=== PATIENT | female | born 1970 | race Caucasian/White ===

== ENCOUNTER 2018-12-24 08:29 | Outpatient (CLI) | payer OTHER ==
[2018-12-24] MEDS ORDERED: CYCL5TAB PO (09:25)
[2018-12-24] MEDS ORDERED: TRAZ-137 PO (09:25)
== END 2018-12-24 23:59 | disposition home or self-care (01) ==
LOC: STAR 08:29
PROVIDERS: ATTEND Specialist
DX: Z02.9 Encounter for administrative examinations, unspecified (principal)

== ENCOUNTER 2019-01-02 12:20 | Day surgery (SDC) | payer OTHER ==
[2018-12-24 09:26] VITALS: BP 109/69
[~2019-01-02] VITALS: Ht 157.5 cm; Wt 61.8 kg
[~2019-01-02 12:20] MED LIST: CYCL5TAB PO; KETOROLAC 30 MG/1 ML ONE; TRAZ-137 PO
[2019-01-02] MEDS ORDERED: LACTATED RINGERS 1,000 ML IV SCH (12:53)
[2019-01-02] MEDS ORDERED: ACETAMINOPHEN 500 MG TABLET PO ONE (13:00)
[2019-01-02] MEDS ORDERED: SCOPOLAMINE PATCH, 1.5MG PATCH.TD72 TD ONE (13:00)
[2019-01-02] MEDS ORDERED: GABAPENTIN 300 MG CAPSULE PO ONE (13:00)
[2019-01-02] MEDS ORDERED: LIDOCAINE-MPF 1%, 2ML ONE (13:18)
[2019-01-02] MEDS ORDERED: LIDOCAINE-MPF 1%, 2ML INFIL ONE (13:30)
[2019-01-02 13:52] LABS: HCG UR SG 1.019 (1.003-1.030)
[2019-01-02] MEDS ORDERED: FENTANYL PF 250 MCG/5ML ONE (14:23)
[2019-01-02] MEDS ORDERED: MIDAZOLAM 1 MG/ML, 2ML ONE (14:23)
[2019-01-02] MEDS ORDERED: HALOPERIDOL 5 MG/ML IV PRN (14:30)
[2019-01-02] MEDS ORDERED: HYDROmorphone 2 MG/ML, 1ML IVPush PRN (14:30)
[2019-01-02] MEDS ORDERED: OXYcodone 5 MG/5 ML ORAL.SOL UDC PO PRN (14:30)
[2019-01-02] MEDS ORDERED: FENTANYL PF 100 MCG/2ML IV PRN (14:30)
[2019-01-02] MEDS ORDERED: hydrALAzine 20 MG/ML, 1ML IV PRN (14:30)
[2019-01-02] MEDS ORDERED: LABETALOL 5MG/ML, 20ML IV PRN (14:30)
[2019-01-02] MEDS ORDERED: PROMETHAZINE 25 MG/ML, 1ML IV PRN (14:30)
[2019-01-02] MEDS ORDERED: METOPROLOL 1 MG/ML, 5ML IV PRN (14:30)
[2019-01-02] MEDS ORDERED: MEPERIDINE/PF 25MG/0.5ML IVPush PRN (14:30)
[2019-01-02] MEDS ORDERED: DIPHENHYDRAMINE 50 MG/ML, 1ML IVPush PRN (14:30)
[2019-01-02] MEDS ORDERED: PROCHLORPERAZINE 5 MG/ML, 2ML IV PRN (14:30)
[2019-01-02] MEDS ORDERED: BUPIVACAINE/PF 0.25% ONE (14:49)
[2019-01-02] MEDS ORDERED: EPINEPHRINE 1 MG/ML, 1ML ONE (14:49)
[2019-01-02] MEDS ORDERED: FLUORESCEIN SODIUM 500 MG/5 ML ONE (14:49)
[2019-01-02] MEDS ORDERED: NEOSTIGMINE 1 MG/ML, 10ML ONE (16:41)
[2019-01-02] MEDS ORDERED: PROPOFOL 10 MG/ML, 20ML ONE (16:41)
[2019-01-02] MEDS ORDERED: ONDANSETRON 2MG/ML, 2ML ONE (16:41)
[2019-01-02] MEDS ORDERED: ROCURONIUM 10MG/ML,5ML ONE (16:41)
[2019-01-02] MEDS ORDERED: GLYCOPYRROLATE 0.2MG/1ML, 5ML ONE (16:41)
[2019-01-02] MEDS ORDERED: CEFAZOLIN 1,000 MG ONE (16:41)
[2019-01-02] MEDS ORDERED: SUCCINYLCHOLINE 20 MG/ML, 10ML ONE (16:41)
[2019-01-02] MEDS ORDERED: DEXAMETHASONE 4 MG/ML, 1ML ONE (16:41)
[2019-01-02] MEDS ORDERED: OXYcodone 5 MG/5 ML ORAL.SOL UDC ONE (17:05)
[2019-01-02] MEDS ORDERED: HYDROmorphone 2 MG/ML, 1ML ONE (17:05)
[2019-01-02] MEDS ORDERED: FENTANYL PF 100 MCG/2ML ONE (17:05)
[2019-01-02] MEDS ORDERED: HYDROmorphone 2 MG/ML, 1ML IV PRN (19:00)
[2019-01-02] MEDS ORDERED: HYDROcodone/APAP 7.5-325MG/15ML UDC PO PRN (19:00)
[2019-01-02] MEDS ORDERED: MEPERIDINE/PF 100 MG/ML IM PRN (19:00)
[2019-01-02] MEDS ORDERED: ONDANSETRON 2MG/ML, 2ML IV PRN (19:00)
[2019-01-02 20:24] VITALS: BP 103/53
[2019-01-02] MEDS: KETOROLAC 30 MG/1 ML IV SCH (20:44)
[2019-01-02] MEDS: D5%-LACTATED RINGERS 1,000 ML IV SCH (20:44)
[2019-01-02] MEDS ORDERED: TRAZODONE 100MG TABLET PO SCH (21:00)
[2019-01-02] MEDS: CEFAZOLIN PMX 2GM/50ML 50 ML IVPB SCH (23:48)
[2019-01-02 23:53] VITALS: BP 96/46
[2019-01-03] MEDS: KETOROLAC 30 MG/1 ML IV SCH ×2 (03:12→07:49)
[2019-01-03 03:39] VITALS: BP 96/52
[2019-01-03] MEDS: D5%-LACTATED RINGERS 1,000 ML IV SCH (05:03)
[2019-01-03 06:52] VITALS: BP 99/60
[2019-01-03] MEDS: CEFAZOLIN PMX 2GM/50ML 50 ML IVPB SCH (07:49)
[2019-01-03] MEDS ORDERED: HYDR-3240 PO (10:27)
[2019-01-03] MEDS ORDERED: IBUP1TAB5 PO (10:28)
== END 2019-01-03 11:00 | disposition home or self-care (01) ==
LOC: OUT 12:20 → 4NOR 17:58 → OUT 18:08 → UNDOADMIN 18:09 → 4NOR 18:09 → DCLOUNGE 01-03 10:55 → OUT 01-03 11:00 → UNDODISIN 01-03 11:00
PROVIDERS: ATTEND Specialist
DX: N72 Inflammatory disease of cervix uteri (principal); N83.8 Other noninflammatory disorders of ovary, fallopian tube and broad ligament; F41.9 Anxiety disorder, unspecified; F43.10 Post-traumatic stress disorder, unspecified; G43.909 Migraine, unspecified, not intractable, without status migrainosus; F17.290 Nicotine dependence, other tobacco product, uncomplicated; Z79.899 Other long term (current) drug therapy; Z88.8 Allergy status to other drugs, medicaments and biological substances; Z83.3 Family history of diabetes mellitus; Z82.49 Family history of ischemic heart disease and other diseases of the circulatory system
CPT/HCPCS: 36415; 58262; 81025; 85014; 85018; 88307; 88342; J0171; J0330; J0690; J1100; J1170; J1885; J2250; J2405; J2704; J2710; J3010; J3490; J7120; J7121; G0378

== ENCOUNTER 2019-01-11 18:50 | Inpatient (IN) | payer OTHER ==
[~2019-01-11] VITALS: Ht 157.5 cm; Wt 69.5 kg
[~2019-01-11 18:50] MED LIST changes: +HYDR-3240 PO; +IBUP1TAB5 PO; -KETOROLAC 30 MG/1 ML ONE
[2019-01-11] MEDS ORDERED: SODIUM CHLORIDE FLUSH 10ML SYR IVF ONE (20:00)
[2019-01-11 20:02] LABS: BASOPHILS # (AUTO) 0.04 x10^3/uL (0-0.1); BASOPHILS % (AUTO) 0 % (0-1); EOSINOPHILS # (AUTO) 0.18 x10^3/uL (0-0.4); EOSINOPHILS % (AUTO) 1 % (1-7); LYMPHOCYTES % (AUTO) 10 % (22-44); MD NO; MEAN CORPUSCULAR HEMOGLOBIN 31.8 pg (27.0-34.8); MEAN CORPUSCULAR HGB CONC 33.6 g/dL (32.4-35.8); MEAN CORPUSCULAR VOLUME 94.9 fL (80-100); MEAN PLATELET VOLUME 7.9 fL (7.4-10.4); MONOCYTES # (AUTO) 0.95 x10^3/uL (0.2-0.8); MONOCYTES % (AUTO) 6 % (2-9); NEUTROPHILS # (AUTO) 13.43 x10^3/uL (1.8-6.8); NEUTROPHILS % (AUTO) 82 % (42-75); PLATELET COUNT 364 x10^3/uL (130-400); RED BLOOD COUNT 3.33 x10^6/uL (3.82-5.3); RED CELL DISTRIBUTION WIDTH 13.5 % (9.6-15.2)
[2019-01-11 20:12] LABS: ALANINE AMINOTRANSFERASE 22 U/L (12-78); ALBUMIN 3.4 g/dL (3.4-5.0); ANION GAP 8 mmol/L (5-15); CALCIUM 8.5 mg/dL (8.5-10.1); CHLORIDE 110 mmol/L (98-107); CREATININE 0.58 mg/dL (0.55-1.02)
[2019-01-11 20:15] LABS: ALKALINE PHOSPHATASE 117 U/L (45-117); BILIRUBIN,TOTAL 0.5 mg/dL (0.2-1.0); TOTAL PROTEIN 7.3 g/dL (6.4-8.2)
--- NOTE | 2019-01-11 20:23 | NUR ---
PT C/O VAGINAL BLEEDING SINCE HYSTERCTOMY ONE WEEK AGO AND FOUL ODOR NOTICED SINCE YESTERDAY ACCOMPANIED BY FEVERS AND CHILLS. WAITING FOR LAB RESULTS. UA SENT TO LAB.
--- NOTE | 2019-01-11 20:40 | NUR ---
PT IN US.
[2019-01-11] MEDS ORDERED: OMNIPAQUE 350 MG/ML, 100ML BOTTLE ONE (21:00)
--- NOTE | 2019-01-11 21:20 | NUR ---
3 P'S ADDRESSED. PT REQUESTING PAIN MEDS. PROVIDER AWARE.
[2019-01-11] MEDS ORDERED: HYDROmorphone 2 MG/ML, 1ML ONE (21:23)
[2019-01-11] MEDS ORDERED: ONDANSETRON 2MG/ML, 2ML ONE (21:23)
[2019-01-11] MEDS ORDERED: PIPERACILLIN/TAZO/PMX 3.375GM 50 ML ONE (21:23)
[2019-01-11] MEDS ORDERED: VANCOMYCIN PER PHARMACY MC PRN ×2 (21:30→22:00)
[2019-01-11] MEDS ORDERED: HYDROmorphone 2 MG/ML, 1ML IVPush PRN (21:30)
[2019-01-11] MEDS ORDERED: VANCOMYCIN 1,200 MG in SODIUM CHLORIDE 0.9% 250 ML IV ONE (21:30)
[2019-01-11] MEDS ORDERED: ONDANSETRON 2MG/ML, 2ML IVPush ONE (21:30)
[2019-01-11] MEDS ORDERED: PIPERACILLIN/TAZO/PMX 3.375GM 50 ML IV ONE (21:30)
[2019-01-11] MEDS: SODIUM CHLORIDE 0.9% 1,000 ML IV SCH (21:34)
[2019-01-11 21:38] LABS: CULTURE INDICATED? YES; MICROSCOPIC INDICATED
[2019-01-11] MEDS ORDERED: ZOSYN PER PHARMACY MC PRN (22:00)
--- NOTE | 2019-01-11 22:09 | NUR ---
REPORT TO NERY ROTH ON MEDICAL. VANCO TO BE STARTED BY IZABELA ROTH PRIOR TO TRANSPORT.
--- NOTE | 2019-01-11 22:15 | NUR ---
PT TO GO TO IR THEN FLOOR PER KOSTA IN RADIOLOGY. NIHARIKAO STOPPED FOR USING IV FOR SEDATION PURPOSES. NERY ON FLOOR AWARE AND WILL START VANCO WHEN PT GETS TO THE FLOOR.
[2019-01-11] MEDS ORDERED: FLUMAZENIL 0.1 MG/1 ML, 5ML ONE (22:50)
[2019-01-11] MEDS ORDERED: FENTANYL PF 100 MCG/2ML ONE (22:50)
[2019-01-11] MEDS ORDERED: MIDAZOLAM 1 MG/ML, 5ML ONE (22:50)
[2019-01-11] MEDS ORDERED: NALOXONE 1 MG/ML, 2ML ONE (22:50)
[2019-01-11] MEDS ORDERED: LIDOCAINE 1%, 20ML ONE (22:52)
--- NOTE | 2019-01-11 22:57 | NUR ---
NEGRO FROM CT TRANSPORTING PT TO IR VIA GURNEY. PT TO BE TAKEN TO ROOM 376 AFTER PROCEDURE. PT VERBALIZES UNDERSTANDING. PT BELONGINGS PLACED IN BELONGINGS BAG AND TRANSPORTED WITH PT. REPORT OF PT GIVEN TO FLOOR NURSE BY CANDY Rios
[2019-01-11] MEDS ORDERED: PHARMACOKINETIC MONITORING MC PRN (23:45)
[2019-01-12] VITALS: BP 116/72
[2019-01-12 00:28] VITALS: BP 103/59
[2019-01-12] MEDS ORDERED: TRAZODONE 50MG TABLET PO ONE (03:30)
[2019-01-12] MEDS: PIPERACILLIN/TAZO/PMX 3.375GM 50 ML IV SCH ×4 (04:12→21:40)
[2019-01-12 05:59] LABS: BASOPHILS # (AUTO) 0.01 x10^3/uL (0-0.1); BASOPHILS % (AUTO) 0 % (0-1); EOSINOPHILS # (AUTO) 0.15 x10^3/uL (0-0.4); EOSINOPHILS % (AUTO) 1 % (1-7); LYMPHOCYTES # (AUTO) 1.73 x10^3/uL (1-3.4); LYMPHOCYTES % (AUTO) 14 % (22-44); MD NO; MEAN CORPUSCULAR HEMOGLOBIN 30.8 pg (27.0-34.8); MEAN CORPUSCULAR HGB CONC 32.7 g/dL (32.4-35.8); MEAN CORPUSCULAR VOLUME 93.9 fL (80-100); MEAN PLATELET VOLUME 7.7 fL (7.4-10.4); MONOCYTES # (AUTO) 0.75 x10^3/uL (0.2-0.8); MONOCYTES % (AUTO) 6 % (2-9); NEUTROPHILS % (AUTO) 79 % (42-75); PLATELET COUNT 312 x10^3/uL (130-400); RED BLOOD COUNT 3.08 x10^6/uL (3.82-5.3); RED CELL DISTRIBUTION WIDTH 13.3 % (9.6-15.2)
[2019-01-12 06:03] LABS: ANION GAP 8 mmol/L (5-15); CALCIUM 8.4 mg/dL (8.5-10.1); CHLORIDE 109 mmol/L (98-107); CREATININE 0.56 mg/dL (0.55-1.02)
[2019-01-12] MEDS: morphine SULFATE 10 MG/ML, 1ML IVPush PRN ×4 (09:35→20:37)
[2019-01-12 09:38] VITALS: BP 118/67
[2019-01-12] MEDS: SODIUM CHLORIDE 0.9% 1,000 ML IV SCH (10:08)
[2019-01-12] MEDS: VANCOMYCIN 1,200 MG in SODIUM CHLORIDE 0.9% 250 ML IV SCH (13:07)
[2019-01-12 13:13] LABS: % IRON SATURATION 7 % (20-55); IRON LEVEL 15 mcg/dL (50-170); TOTAL IRON BINDING CAPACITY 219 mcg/dL (250-450)
[2019-01-12 14:41] VITALS: BP 114/65
[2019-01-12] MEDS: FERROUS SULFATE 325 MG TABLET PO SCH (17:45)
[2019-01-12] MEDS: HYDROcodone/APAP 5/325 TABLET PO PRN (17:45)
[2019-01-12] MEDS: TRAZODONE 100MG TABLET PO SCH (20:21)
[2019-01-12] MEDS: DOCUSATE 100 MG CAPSULE PO PRN (20:37)
[2019-01-12 20:46] VITALS: BP 98/66
[2019-01-13 00:12] VITALS: BP 102/64
[2019-01-13] MEDS: morphine SULFATE 10 MG/ML, 1ML IVPush PRN ×4 (00:21→09:53)
[2019-01-13] MEDS: VANCOMYCIN 1,200 MG in SODIUM CHLORIDE 0.9% 250 ML IV SCH ×2 (00:21→12:42)
[2019-01-13] MEDS: SODIUM CHLORIDE 0.9% 1,000 ML IV SCH ×3 (02:25→21:48)
[2019-01-13] MEDS: PIPERACILLIN/TAZO/PMX 3.375GM 50 ML IV SCH ×4 (03:21→21:48)
[2019-01-13 04:28] LABS: BASOPHILS # (AUTO) 0.03 x10^3/uL (0-0.1); BASOPHILS % (AUTO) 0 % (0-1); EOSINOPHILS # (AUTO) 0.15 x10^3/uL (0-0.4); EOSINOPHILS % (AUTO) 1 % (1-7); LYMPHOCYTES # (AUTO) 2.02 x10^3/uL (1-3.4); LYMPHOCYTES % (AUTO) 18 % (22-44); MD NO; MEAN CORPUSCULAR HEMOGLOBIN 30.6 pg (27.0-34.8); MEAN CORPUSCULAR HGB CONC 32.6 g/dL (32.4-35.8); MEAN CORPUSCULAR VOLUME 94.1 fL (80-100); MEAN PLATELET VOLUME 7.6 fL (7.4-10.4); MONOCYTES # (AUTO) 0.68 x10^3/uL (0.2-0.8); MONOCYTES % (AUTO) 6 % (2-9); NEUTROPHILS # (AUTO) 8.39 x10^3/uL (1.8-6.8); NEUTROPHILS % (AUTO) 75 % (42-75); PLATELET COUNT 315 x10^3/uL (130-400); RED BLOOD COUNT 2.94 x10^6/uL (3.82-5.3); RED CELL DISTRIBUTION WIDTH 12.7 % (9.6-15.2)
[2019-01-13 04:40] LABS: ANION GAP 6 mmol/L (5-15); CALCIUM 8.2 mg/dL (8.5-10.1); CHLORIDE 112 mmol/L (98-107); CREATININE 0.57 mg/dL (0.55-1.02)
[2019-01-13 04:53] VITALS: BP 97/57
[2019-01-13] MEDS: FERROUS SULFATE 325 MG TABLET PO SCH ×2 (08:00→15:43)
[2019-01-13 08:19] VITALS: BP 103/67
[2019-01-13] MEDS ORDERED: SODIUM CHLORIDE 0.9% 1,000 ML IV SCH (08:30)
[2019-01-13] MEDS: HYDROcodone/APAP 5/325 TABLET PO PRN ×3 (12:42→22:56)
[2019-01-13] MEDS: DOCUSATE 100 MG CAPSULE PO PRN (12:42)
[2019-01-13 13:21] VITALS: BP 102/68
[2019-01-13] MEDS: MAGNESIUM HYDROXIDE 8%, 30ML UDC PO PRN (15:53)
[2019-01-13 20:54] VITALS: BP 93/63
[2019-01-13] MEDS: TRAZODONE 100MG TABLET PO SCH (21:48)
[2019-01-14] MEDS: VANCOMYCIN 1,200 MG in SODIUM CHLORIDE 0.9% 250 ML IV SCH ×2 (00:34→13:37)
[2019-01-14 03:32] VITALS: BP 107/72
[2019-01-14] MEDS: PIPERACILLIN/TAZO/PMX 3.375GM 50 ML IV SCH ×4 (03:49→23:04)
[2019-01-14] MEDS: HYDROcodone/APAP 5/325 TABLET PO PRN ×4 (03:54→16:45)
[2019-01-14 05:15] LABS: BASOPHILS # (AUTO) 0.04 x10^3/uL (0-0.1); BASOPHILS % (AUTO) 0 % (0-1); EOSINOPHILS # (AUTO) 0.23 x10^3/uL (0-0.4); EOSINOPHILS % (AUTO) 2 % (1-7); LYMPHOCYTES # (AUTO) 2.54 x10^3/uL (1-3.4); LYMPHOCYTES % (AUTO) 24 % (22-44); MD NO; MEAN CORPUSCULAR HEMOGLOBIN 31.8 pg (27.0-34.8); MEAN CORPUSCULAR HGB CONC 33.5 g/dL (32.4-35.8); MEAN CORPUSCULAR VOLUME 95.1 fL (80-100); MONOCYTES # (AUTO) 0.69 x10^3/uL (0.2-0.8); MONOCYTES % (AUTO) 7 % (2-9); NEUTROPHILS # (AUTO) 6.89 x10^3/uL (1.8-6.8); NEUTROPHILS % (AUTO) 66 % (42-75); PLATELET COUNT 342 x10^3/uL (130-400); RED BLOOD COUNT 2.85 x10^6/uL (3.82-5.3); RED CELL DISTRIBUTION WIDTH 13.5 % (9.6-15.2)
[2019-01-14 05:25] LABS: ANION GAP 7 mmol/L (5-15); CALCIUM 7.8 mg/dL (8.5-10.1); CHLORIDE 112 mmol/L (98-107); CREATININE 0.58 mg/dL (0.55-1.02)
[2019-01-14 07:24] VITALS: BP 95/60
[2019-01-14] MEDS: FERROUS SULFATE 325 MG TABLET PO SCH ×2 (08:02→16:45)
[2019-01-14] MEDS: MAGNESIUM HYDROXIDE 8%, 30ML UDC PO PRN (08:03)
[2019-01-14] MEDS: SODIUM CHLORIDE 0.9% 1,000 ML IV SCH (08:06)
[2019-01-14] MEDS ORDERED: POTASSIUM CHLORIDE 20 MEQ TAB.ER.PRT PO ONE ×2 (08:30→16:00)
[2019-01-14] MEDS: ONDANSETRON 2MG/ML, 2ML IVPush PRN (12:10)
[2019-01-14 12:34] VITALS: BP 100/68
[2019-01-14 19:20] VITALS: BP 103/53
[2019-01-14] MEDS: TRAZODONE 100MG TABLET PO SCH (20:00)
[2019-01-14] MEDS ORDERED: BISACODYL 10 MG SUPP PR ONE (23:00)
[2019-01-15 00:42] VITALS: BP 117/68
[2019-01-15] MEDS: VANCOMYCIN 1,200 MG in SODIUM CHLORIDE 0.9% 250 ML IV SCH (01:48)
[2019-01-15 05:05] LABS: BASOPHILS # (AUTO) 0.01 x10^3/uL (0-0.1); BASOPHILS % (AUTO) 0 % (0-1); EOSINOPHILS # (AUTO) 0.07 x10^3/uL (0-0.4); EOSINOPHILS % (AUTO) 1 % (1-7); LYMPHOCYTES # (AUTO) 1.26 x10^3/uL (1-3.4); LYMPHOCYTES % (AUTO) 11 % (22-44); MD NO; MEAN CORPUSCULAR HEMOGLOBIN 31.1 pg (27.0-34.8); MEAN CORPUSCULAR HGB CONC 33.5 g/dL (32.4-35.8); MEAN CORPUSCULAR VOLUME 92.8 fL (80-100); MEAN PLATELET VOLUME 7.6 fL (7.4-10.4); MONOCYTES # (AUTO) 0.35 x10^3/uL (0.2-0.8); MONOCYTES % (AUTO) 3 % (2-9); NEUTROPHILS # (AUTO) 9.56 x10^3/uL (1.8-6.8); NEUTROPHILS % (AUTO) 85 % (42-75); PLATELET COUNT 335 x10^3/uL (130-400); RED CELL DISTRIBUTION WIDTH 13.1 % (9.6-15.2)
[2019-01-15 05:16] LABS: ANION GAP 6 mmol/L (5-15); CALCIUM 8.1 mg/dL (8.5-10.1); CHLORIDE 113 mmol/L (98-107)
[2019-01-15 05:18] LABS: CREATININE 0.61 mg/dL (0.55-1.02)
[2019-01-15] MEDS: PIPERACILLIN/TAZO/PMX 3.375GM 50 ML IV SCH ×4 (05:38→22:50)
[2019-01-15] MEDS: ACETAMINOPHEN 325 MG TABLET PO PRN ×4 (05:38→22:50)
[2019-01-15] MEDS: DOCUSATE 100 MG CAPSULE PO PRN (08:52)
[2019-01-15] MEDS: FERROUS SULFATE 325 MG TABLET PO SCH ×2 (08:52→17:33)
[2019-01-15 08:54] VITALS: BP 93/53
[2019-01-15 16:46] VITALS: BP 115/66
[2019-01-15 19:10] VITALS: BP 102/64
[2019-01-15] MEDS: TRAZODONE 100MG TABLET PO SCH ×2 (20:03→22:58)
[2019-01-16 02:27] VITALS: BP 106/59
[2019-01-16] MEDS: PIPERACILLIN/TAZO/PMX 3.375GM 50 ML IV SCH ×4 (05:14→22:54)
[2019-01-16 05:45] LABS: BASOPHILS # (AUTO) 0.03 x10^3/uL (0-0.1); BASOPHILS % (AUTO) 0 % (0-1); EOSINOPHILS % (AUTO) 3 % (1-7); LYMPHOCYTES # (AUTO) 2.26 x10^3/uL (1-3.4); LYMPHOCYTES % (AUTO) 24 % (22-44); MD NO; MEAN CORPUSCULAR HEMOGLOBIN 31.7 pg (27.0-34.8); MEAN CORPUSCULAR HGB CONC 33.8 g/dL (32.4-35.8); MEAN CORPUSCULAR VOLUME 93.6 fL (80-100); MEAN PLATELET VOLUME 7.8 fL (7.4-10.4); MONOCYTES # (AUTO) 0.53 x10^3/uL (0.2-0.8); MONOCYTES % (AUTO) 6 % (2-9); NEUTROPHILS # (AUTO) 6.18 x10^3/uL (1.8-6.8); NEUTROPHILS % (AUTO) 66 % (42-75); PLATELET COUNT 364 x10^3/uL (130-400); RED BLOOD COUNT 2.79 x10^6/uL (3.82-5.3); RED CELL DISTRIBUTION WIDTH 13.2 % (9.6-15.2)
[2019-01-16 05:46] LABS: CHLORIDE 115 mmol/L (98-107)
[2019-01-16 05:50] LABS: ANION GAP 7 mmol/L (5-15); CALCIUM 8.3 mg/dL (8.5-10.1); CREATININE 0.52 mg/dL (0.55-1.02)
[2019-01-16] MEDS: FERROUS SULFATE 325 MG TABLET PO SCH ×2 (07:25→17:06)
[2019-01-16 07:50] VITALS: BP 109/53
[2019-01-16] MEDS ORDERED: OMNIPAQUE 350 MG/ML, 100ML BOTTLE ONE (09:50)
[2019-01-16] MEDS ORDERED: NALOXONE 1 MG/ML, 2ML ONE (10:26)
[2019-01-16] MEDS ORDERED: FLUMAZENIL 0.1 MG/1 ML, 5ML ONE (10:26)
[2019-01-16] MEDS ORDERED: MIDAZOLAM 1 MG/ML, 5ML ONE (10:26)
[2019-01-16] MEDS ORDERED: FENTANYL PF 100 MCG/2ML ONE (10:26)
[2019-01-16] MEDS ORDERED: LIDOCAINE-MPF 1%, 5ML ONE (10:43)
[2019-01-16 13:20] VITALS: BP 112/59
[2019-01-16] MEDS: ACETAMINOPHEN 325 MG TABLET PO PRN (13:41)
[2019-01-16] MEDS ORDERED: POLYETHYLENE GLYCOL 17 GM PACKET PO PRN (15:00)
[2019-01-16] MEDS: ENOXAPARIN 40 MG/0.4 ML SQ SCH (17:06)
[2019-01-16] MEDS: KETOROLAC 30 MG/1 ML IVPush PRN ×2 (17:06→22:58)
[2019-01-16 19:19] VITALS: BP 102/60
[2019-01-16] MEDS: DOCUSATE 100 MG CAPSULE PO SCH (21:26)
[2019-01-16] MEDS: TRAZODONE 100MG TABLET PO SCH (21:27)
[2019-01-17 02:30] VITALS: BP 117/76
[2019-01-17 04:42] LABS: BASOPHILS # (AUTO) 0.02 x10^3/uL (0-0.1); BASOPHILS % (AUTO) 0 % (0-1); EOSINOPHILS # (AUTO) 0.22 x10^3/uL (0-0.4); EOSINOPHILS % (AUTO) 3 % (1-7); LYMPHOCYTES # (AUTO) 2.14 x10^3/uL (1-3.4); LYMPHOCYTES % (AUTO) 24 % (22-44); MD NO; MEAN CORPUSCULAR HEMOGLOBIN 31.2 pg (27.0-34.8); MEAN CORPUSCULAR HGB CONC 33.4 g/dL (32.4-35.8); MEAN CORPUSCULAR VOLUME 93.6 fL (80-100); MEAN PLATELET VOLUME 7.7 fL (7.4-10.4); MONOCYTES # (AUTO) 0.64 x10^3/uL (0.2-0.8); MONOCYTES % (AUTO) 7 % (2-9); NEUTROPHILS # (AUTO) 6.06 x10^3/uL (1.8-6.8); NEUTROPHILS % (AUTO) 67 % (42-75); PLATELET COUNT 370 x10^3/uL (130-400); RED BLOOD COUNT 2.81 x10^6/uL (3.82-5.3); RED CELL DISTRIBUTION WIDTH 13.5 % (9.6-15.2)
[2019-01-17 04:48] LABS: ANION GAP 7 mmol/L (5-15); CALCIUM 8.3 mg/dL (8.5-10.1); CHLORIDE 113 mmol/L (98-107); CREATININE 0.59 mg/dL (0.55-1.02)
[2019-01-17] MEDS: PIPERACILLIN/TAZO/PMX 3.375GM 50 ML IV SCH (04:56)
[2019-01-17] MEDS: KETOROLAC 30 MG/1 ML IVPush PRN (04:56)
[2019-01-17 07:39] VITALS: BP 99/54
[2019-01-17] MEDS: FERROUS SULFATE 325 MG TABLET PO SCH ×2 (08:11→17:50)
[2019-01-17] MEDS: DOCUSATE 100 MG CAPSULE PO SCH ×2 (08:11→20:45)
[2019-01-17] MEDS: ONDANSETRON 2MG/ML, 2ML IVPush PRN (08:11)
[2019-01-17] MEDS: ACETAMINOPHEN 325 MG TABLET PO PRN ×3 (11:53→21:46)
[2019-01-17] MEDS: AMPICILLIN/SULBACTAM 3 GM in SODIUM CHLORIDE 0.9% 100 ML IV SCH ×2 (11:54→18:12)
[2019-01-17 14:06] VITALS: BP 106/59
[2019-01-17] MEDS: ENOXAPARIN 40 MG/0.4 ML SQ SCH (17:51)
[2019-01-17 19:35] VITALS: BP 111/68
[2019-01-17] MEDS: TRAZODONE 100MG TABLET PO SCH (21:47)
[2019-01-18] MEDS: AMPICILLIN/SULBACTAM 3 GM in SODIUM CHLORIDE 0.9% 100 ML IV SCH ×3 (00:44→12:12)
[2019-01-18 02:11] VITALS: BP 110/66
[2019-01-18 05:34] LABS: BASOPHILS # (AUTO) 0.04 x10^3/uL (0-0.1); BASOPHILS % (AUTO) 1 % (0-1); EOSINOPHILS % (AUTO) 3 % (1-7); LYMPHOCYTES # (AUTO) 1.84 x10^3/uL (1-3.4); LYMPHOCYTES % (AUTO) 23 % (22-44); MD NO; MEAN CORPUSCULAR HEMOGLOBIN 30.4 pg (27.0-34.8); MEAN CORPUSCULAR HGB CONC 33.1 g/dL (32.4-35.8); MEAN CORPUSCULAR VOLUME 91.8 fL (80-100); MEAN PLATELET VOLUME 7.8 fL (7.4-10.4); MONOCYTES # (AUTO) 0.61 x10^3/uL (0.2-0.8); MONOCYTES % (AUTO) 8 % (2-9); NEUTROPHILS # (AUTO) 5.25 x10^3/uL (1.8-6.8); NEUTROPHILS % (AUTO) 66 % (42-75); PLATELET COUNT 414 x10^3/uL (130-400); RED CELL DISTRIBUTION WIDTH 13.6 % (9.6-15.2)
[2019-01-18 05:39] LABS: ANION GAP 7 mmol/L (5-15); CALCIUM 8.2 mg/dL (8.5-10.1); CHLORIDE 112 mmol/L (98-107)
[2019-01-18 05:43] LABS: CREATININE 0.53 mg/dL (0.55-1.02)
[2019-01-18] MEDS ORDERED: POTASSIUM CHLORIDE 20 MEQ TAB.ER.PRT PO SCH (08:00)
[2019-01-18] MEDS: DOCUSATE 100 MG CAPSULE PO SCH (08:06)
[2019-01-18] MEDS: FERROUS SULFATE 325 MG TABLET PO SCH (08:06)
[2019-01-18 08:18] VITALS: BP 110/56
[2019-01-18] MEDS: KETOROLAC 30 MG/1 ML IVPush PRN (10:47)
[2019-01-18] MEDS ORDERED: FERR-51 PO (13:51)
[2019-01-18 14:17] VITALS: BP 119/70
[2019-01-18] MEDS ORDERED: MELATONIN 3 MG TABLET PO SCH (21:00)
== END 2019-01-18 15:10 | disposition home or self-care (01) | DRG 862 ==
LOC: ED 20:43 → EDIP 21:52 → 3NE 23:51 → DCLOUNGE 01-18 14:58
PROVIDERS: ADMIT Internal Medicine; ATTEND Internal Medicine
PROC: 0W9H30Z Drainage of Retroperitoneum with Drainage Device, Percutaneous Approach (ICD-10-PCS; principal; 2019-01-11)
PROC: 0W2HX0Z Change Drainage Device in Retroperitoneum, External Approach (ICD-10-PCS; 2019-01-16)
PROC: 02HV33Z Insertion of Infusion Device into Superior Vena Cava, Percutaneous Approach (ICD-10-PCS; 2019-01-17)
PROC: B5181ZA Fluoroscopy of Superior Vena Cava using Low Osmolar Contrast, Guidance (ICD-10-PCS; 2019-01-17)
PROC: B548ZZA Ultrasonography of Superior Vena Cava, Guidance (ICD-10-PCS; 2019-01-17)
DX: K68.11 Postprocedural retroperitoneal abscess (principal); A41.9 Sepsis, unspecified organism; N39.0 Urinary tract infection, site not specified; L02.211 Cutaneous abscess of abdominal wall; N73.9 Female pelvic inflammatory disease, unspecified; T81.43XA Infection following a procedure, organ and space surgical site, initial encounter; D64.9 Anemia, unspecified; Y83.8 Other surgical procedures as the cause of abnormal reaction of the patient, or of later complication, without mention of misadventure at the time of the procedure; K59.00 Constipation, unspecified; Z82.49 Family history of ischemic heart disease and other diseases of the circulatory system; Z83.3 Family history of diabetes mellitus; Z86.001 Personal history of in-situ neoplasm of cervix uteri; Z90.710 Acquired absence of both cervix and uterus; Y92.89 Other specified places as the place of occurrence of the external cause
CPT/HCPCS: 36415; 74021; 75984; 84145; 99285; J3490; 36573; 49406; 49423; 72193; 74177; 76856; 80048; 80053; 80202; 81001; 83540; 83550; 83605; 85025; 87040; 87070; 87075; 87077; 87086; 87102; 87147; 87186; 87205; 96365; 96375; 99156; 99157; G0378; J0295; J1170; J1650; J1885; J2250; J2405; J2543; J3010; J3370; Q9967; C1729; C1751; C1769; J2270; J2310; J7030; J7050

== ENCOUNTER 2019-01-29 10:28 | Outpatient (CLI) | payer OTHER ==
[~2019-01-29 10:28] MED LIST changes: +FERR-51 PO
== END 2019-01-29 23:59 | disposition home or self-care (01) ==
LOC: RAD 10:28
PROVIDERS: ATTEND Specialist
DX: K68.11 Postprocedural retroperitoneal abscess (principal)
CPT/HCPCS: 72192